=== PATIENT | male | born 1970 | race Caucasian/White ===

== ENCOUNTER 2017-12-23 10:25 | Inpatient (IN) | payer BC ==
[~2017-12-23] VITALS: Ht 177.8 cm; Wt 70.5 kg
[2017-12-23 12:00] VITALS: BP 136/73
[2017-12-23] MEDS ORDERED: PHEN57OI23 RC (13:00)
[2017-12-23] MEDS ORDERED: PHENYLEPH/MIN OIL/PETROLAT hemorrhoid oint 57GM tube RC PRN (13:20)
[2017-12-23] MEDS ORDERED: magnesium hydroxide 30ml (MOM) UD suspension PO PRN (13:30)
[2017-12-23] MEDS ORDERED: acetaminophen 325mg tablet PO PRN ×2 (13:30)
[2017-12-23] MEDS ORDERED: mag hydrox/Alum hydrox/simeth 30ml oral suspension PO PRN (13:30)
[2017-12-23 19:00] VITALS: BP 143/89
[2017-12-24 07:34] VITALS: BP 122/81
[2017-12-24 10:44] LABS: HEMOGLOBIN A1C 5.3 % (4.5-6.2)
[2017-12-24 10:49] LABS: CHOL/HDL RATIO 4.6 (0.00-4.99); CHOLESTEROL 231 MG/DL (0-200); HDL CHOLESTEROL 50 MG/DL (35-60); LDL CHOLESTEROL 154 MG/DL (50-100); TRIGLYCERIDES 137 MG/DL (20-135)
[2017-12-24 19:00] VITALS: BP 123/89
[2017-12-24 20:00] VITALS: BP 110/64
[2017-12-25 06:50] VITALS: BP 115/73
== END 2017-12-25 11:25 | disposition home or self-care (01) | DRG 881 ==
LOC: ADULT MH 10:25
PROVIDERS: ADMIT Psychiatry & Neurology Psychiatry; ATTEND Psychiatry & Neurology Psychiatry
DX: F32.9 Major depressive disorder, single episode, unspecified (principal); R45.851 Suicidal ideations; F41.9 Anxiety disorder, unspecified; F10.20 Alcohol dependence, uncomplicated; Z87.891 Personal history of nicotine dependence; Z79.899 Other long term (current) drug therapy
CPT/HCPCS: 36415; 80061; 83036; 87070